=== PATIENT | female | born 1945 | race Caucasian/White ===

== ENCOUNTER → 2018-05-08 | Day surgery (SDC) | payer MEDICARE, OTHER ==
[~2018-05-08] MED LIST: Acetaminophen 325 MG Tab PO PRN; Apraclonidine 0.5% Ophth Soln 5 ML Bot EYELF ONE; Balanced Salt Solution Plus Ophth Irrig 500 ML Bottle IOCULAR ONE; Cataract Ophth Solution EYELF ONE; Chondroitin Sulfate/Hyaluronate Sodium Ophth Inj 0.75 ML Syringe EYELF ONE; Dexamethasone 4 MG/ML SDV IV ONE; Dexamethasone/Neomycin/Polymyxin B Ophth Oint 3.5 GM Tube EYELF ONE; Lidocaine 1% 30 ML SDV INJECT ONE; Midazolam 1 MG/ML 2 ML SDV IV ONE; Moxifloxacin 0.5% Ophth Soln 3 ML Bottle EYELF ONE; Ondansetron 4 MG/2 ML SDV IVPUSH PRN; Phenylephrine 10% Ophth Soln 5 ML Bot EYELF ONE; Phenylephrine 10% Ophth Soln 5 ML Bot EYELF PRN; Povidone-Iodine 5% Sterile Ophth Soln 30 ML Bottle EYELF ONE; Proparacaine 0.5% Ophth Soln 15 ML Bottle EYELF ONE; Sodium Chloride 0.9% 10 ML Syringe FLUSH PRN; Sodium Chloride 0.9% 10 ML Syringe IV ONE; Tetracaine HCl/PF 0.5% 4 ML Bottle EYELF ONE; Timolol Maleate 0.5% Ophth Soln 5 ML Bottle EYELF ONE; Vancomycin 500 MG SDV EYELF ONE
--- NOTE | 2018-05-08 08:54 | OR ---
DATE: 05/08/2018 PREOPERATIVE DIAGNOSIS: Visually significant mixed cataract, left eye. POSTOPERATIVE DIAGNOSIS: Visually significant mixed cataract, left eye. PROCEDURE: Extracapsular cataract extraction with intraocular lens implant, left eye. ANESTHESIA: Topical/local MAC. COMPLICATIONS: None. INDICATION: Ms. Trotter was seen in the clinic with complaints of blurred vision, difficulty reading, difficulty driving, and difficulty with glare. Examination revealed visually significant cataract. I explained options, I offered cataract surgery, and I explained risks. She is symptomatic and requested surgery to improve vision and function. She requested a monofocal implant. Slit-lamp examination reveals mixed cataract. She has been well informed regarding risks including the potential for infection, retinal detachment, and loss of vision amongst others. She voiced understanding and wished to proceed. OPERATIVE DESCRIPTION: After informed consent was obtained and the risks, benefits, and alternatives were explained, the patient was brought to the operative suite and topical anesthesia was administered. The patient was then prepped and draped in the sterile fashion, and attention was placed on the left eye. A sterile lid speculum was placed into the left eye to allow operative exposure. A full-thickness paracentesis was made in the temporal portion of the operative eye. Preservative-free lidocaine 0.1 mL was injected into the anterior chamber followed by viscoelastic. A full-thickness corneal incision was then made into the anterior chamber. A bent needle cystotome was used to create a small jatinder in the anterior capsule. The capsulorrhexis forceps was then used to create a 360-degree curvilinear capsulorrhexis. The nucleus was then removed using a phacoemulsification handpiece, and the remaining cortical material was then removed with irrigation and aspiration handpiece. Following removal of the cortical material, the capsular bag was then inspected and noted to be free of any holes or tears. Viscoelastic was then injected into the capsular bag, and the intraocular lens was inserted into the capsular bag. The viscoelastic material was then removed from both the anterior and posterior chambers and from behind the IOL. The lens and capsular bag were then reinspected. The IOL was well centered and the capsular bag intact. The wound and paracentesis sites were inspected and hydrated with balanced saline solution. Both were found to be self-sealing. The intraocular pressure was assessed digitally and found to be within normal range. A good red reflex was noted at the completion of the procedure. No complications occurred during the operation. At the completion of the procedure, Maxitrol, Voltaren, and Iopidine drops were placed into the operative eye. A sterile eye shield was placed over the operative eye, and the patient was transported to the postoperative recovery area having tolerated the procedure well. Postoperative instructions were given along with a postoperative appointment. The patient was advised to call with any questions or concerns. [facility] /[id number]
[2018-05-08 13:00] VITALS: BP 86/62
== END | disposition home or self-care (01) ==
LOC: DL.SDS 06:20
PROVIDERS: ATTEND Ophthalmology
DX: H25.812 Combined forms of age-related cataract, left eye (principal); I11.0 Hypertensive heart disease with heart failure; I50.9 Heart failure, unspecified; E66.9 Obesity, unspecified; Z68.33 Body mass index [BMI] 33.0-33.9, adult; I25.10 Atherosclerotic heart disease of native coronary artery without angina pectoris; E78.5 Hyperlipidemia, unspecified; Z79.82 Long term (current) use of aspirin; Z79.899 Other long term (current) drug therapy
CPT/HCPCS: 00142; 66984; A9270; C1780; J1100; J2250; J3370; J7050

== ENCOUNTER 2018-05-09 19:32 | Emergency (ER) | payer MEDICARE, OTHER ==
[2018-05-09 19:50] VITALS: BP 138/50
--- NOTE | 2018-05-09 21:27 | EDM.PDOC ---
ED HPI GENERAL MEDICAL PROBLEM - General Chief Complaint: Trauma Stated Complaint: TRIPPED AND FELL BUSTED CHEEK PRETTY GOOD Time Seen by Provider: 05/09/18 21:16 Source of Information: Reports: Patient History Limitations: Reports: No Limitations - History of Present Illness INITIAL COMMENTS - FREE TEXT/NARRATIVE: states was walking on side walk that has wooden boards and one of them has popped up and didn't see it and tripped over it and landed onto face. was dazzed but doesn't think was LOC, no vomiting no real nausea. c/o pain right cheek. neck feels ok. - Related Data Allergies Allergy/AdvReac Type Severity Reaction Status Date / Time No Known Allergies Allergy Verified 05/08/18 06:57 Home Meds: Home Meds Aspirin [Roberto Chewable] 81 mg PO DAILY 02/27/14 [History] Propafenone [Rythmol] 150 mg PO TID 02/27/14 [History] Cholecalciferol (Vitamin D3) [D3 Dots] 2,000 units PO DAILY 06/22/17 [History] Lutein/Minerals/Vit A,C & E [Ocuvite] 1 tab PO DAILY 06/22/17 [History] Simvastatin [Zocor] 40 mg PO BEDTIME 06/22/17 [History] Valsartan 320 mg PO DAILY 06/22/17 [History] hydroCHLOROthiazide [Hydrochlorothiazide] 12.5 mg PO DAILY 06/22/17 [History] [id number] [Cataract Opthalmic Solution] 1 drop EYELF QID 05/06/18 [History ] Past Medical History HEENT History: Reports: Cataract, Hard of Hearing, Impaired Vision, Other (See Below) Other HEENT History: WEARS CORRECTIVE LENS. HEARING AIDES BILAT EARS Cardiovascular History: Reports: Afib, Heart Murmur, Hypertension, Other (See Below) Other Cardiovascular History: HX OF [id number] SYNDROME. 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: Musculoskeletal History: Reports: None Neurological History: Reports: None Psychiatric History: Reports: None Endocrine/Metabolic History: Reports: None Hematologic History: Reports: None Immunologic History: Reports: None Oncologic (Cancer) History: Reports: None Dermatologic History: Reports: None - Infectious Disease History Other Infectious Disease History: 'I DON'T REALLY REMEMBER' - Past Surgical History Head Surgeries/Procedures: Reports: None HEENT Surgical History: Reports: None Cardiovascular Surgical History: Reports: Other (See Below) Other Cardiovascular Surgeries/Procedures: ABNORMAL NUCLEAR STRESS TEST. LEFT HEART CATH Respiratory Surgical History: Reports: None GI Surgical History: Reports: None Female Surgical History: Reports: Section Other Female Surgeries/Procedures: X4 Endocrine Surgical History: Reports: None Neurological Surgical History: Reports: None Musculoskeletal Surgical History: Reports: None Oncologic Surgical History: Reports: None Dermatological Surgical History: Reports: None Social & Family History - Caffeine Use Caffeine Use: Reports: None - Living Situation & Occupation Living situation: Reports: , with Family Occupation: Retired Review of Systems - Review of Systems Review Of Systems: ROS reveals no pertinent complaints other than HPI. ED EXAM, GENERAL - Physical Exam Exam: See Below Exam Limited By: No Limitations General Appearance: Alert, WD/WN, Mild Distress, Other (disomcfort) Eye Exam: Bilateral Eye: PERRL (pupils ess ER @ 4mm) Ears: Hearing Grossly Normal Throat/Mouth: Normal Voice, No Airway Compromise Head: Other (right cheek haematoma, no O/B) Neck: Non-Tender, Full Range of Motion Respiratory/Chest: No Respiratory Distress Cardiovascular: Regular Rate, Rhythm GI/Abdominal: Soft, Non-Tender Neurological: Alert, Oriented, Normal Cognition, Normal Gait, No Motor/Sensory Deficits Psychiatric: Flat Affect Skin Exam: Warm, Dry, Normal Color Lymphatic: No Adenopathy Course - Vital Signs Last Recorded V/S: Last Vital Signs Temp 36.7 C 05/09/18 19:50 Pulse 66 05/09/18 19:50 Resp 22 H 05/09/18 19:50 BP 138/50 L 05/09/18 19:50 Pulse Ox 96 05/09/18 19:50 - Re-Assessments/Exams Free Text/Narrative Re-Assessment/Exam: 05/09/18 21:21 results discussed with pt who has no c/o presently. Departure - Departure Time of Disposition: 21:40 Disposition: Home, Self-Care 01 Condition: Good Clinical Impression: Concussion Qualifiers: Encounter type: initial encounter Loss of consciousness presence/duration: without LOC Qualified Code(s): S06.0X0A - Concussion without loss of consciousness, initial encounter Contusion, cheek Qualifiers: Encounter type: initial encounter Qualified Code(s): S00.83XA - Contusion of other part of head, initial encounter - Discharge Information Instructions: Head Injury, Adult, [id number] Referrals: Mike Melton MD [Primary Care Provider] - Forms: ED Department Discharge Additional Instructions: 1) ice to cheek swelling intermittently 2) take tyelnol as needed for pain 3) return if there is any change or concern
== END 2018-05-09 21:40 | disposition home or self-care (01) ==
LOC: DL.ED 19:32
DX: S06.0X0A Concussion without loss of consciousness, initial encounter (principal); S00.83XA Contusion of other part of head, initial encounter; I10 Essential (primary) hypertension; I48.91 Unspecified atrial fibrillation; Z79.82 Long term (current) use of aspirin; Z79.899 Other long term (current) drug therapy; W18.40XA Slipping, tripping and stumbling without falling, unspecified, initial encounter
CPT/HCPCS: 70450; 70486; 72125; 99284

== ENCOUNTER 2018-06-12 06:43 | Day surgery (SDC) | payer MEDICARE, OTHER ==
[2018-06-12] MEDS ORDERED: Dexamethasone 4 MG/ML SDV IV ONE (06:44)
[2018-06-12] MEDS ORDERED: Midazolam 1 MG/ML 2 ML SDV IV ONE (06:44)
[2018-06-12] MEDS ORDERED: Sodium Chloride 0.9% 10 ML Syringe IV ONE (06:44)
[2018-06-12] MEDS ORDERED: Phenylephrine 10% Ophth Soln 5 ML Bot EYERT ONE (07:00)
[2018-06-12] MEDS ORDERED: Moxifloxacin 0.5% Ophth Soln 3 ML Bottle EYERT ONE (07:00)
[2018-06-12] MEDS ORDERED: Timolol Maleate 0.5% Ophth Soln 5 ML Bottle EYERT ONE (07:00)
[2018-06-12] MEDS ORDERED: Phenylephrine 10% Ophth Soln 5 ML Bot EYERT PRN (07:00)
[2018-06-12] MEDS ORDERED: Proparacaine 0.5% Ophth Soln 15 ML Bottle EYERT ONE (07:00)
[2018-06-12] MEDS ORDERED: Sodium Chloride 0.9% 10 ML Syringe FLUSH PRN (07:00)
[2018-06-12] MEDS ORDERED: Ondansetron 4 MG/2 ML SDV IVPUSH PRN (07:00)
[2018-06-12] MEDS ORDERED: Povidone-Iodine 5% Sterile Ophth Soln 30 ML Bottle EYERT ONE ×2 (07:00→08:09)
[2018-06-12] MEDS ORDERED: Cataract Ophth Solution EYERT ONE (07:00)
[2018-06-12] MEDS ORDERED: Acetaminophen 325 MG Tab PO PRN (07:00)
[2018-06-12] MEDS ORDERED: Tetracaine HCl/PF 0.5% 4 ML Bottle EYERT ONE (08:09)
[2018-06-12] MEDS ORDERED: Lidocaine 1% 30 ML SDV INJECT ONE (08:18)
[2018-06-12] MEDS ORDERED: Balanced Salt Solution Plus Ophth Irrig 500 ML Bottle IOCULAR ONE (08:19)
[2018-06-12] MEDS ORDERED: Chondroitin Sulfate/Hyaluronate Sodium Ophth Inj 0.75 ML Syringe EYERT ONE (08:19)
[2018-06-12] MEDS ORDERED: Vancomycin 500 MG SDV EYERT ONE (08:20)
[2018-06-12] MEDS ORDERED: Apraclonidine 0.5% Ophth Soln 5 ML Bot EYERT ONE (08:29)
[2018-06-12] MEDS ORDERED: Diclofenac Sodium 0.1% Ophth Soln 5 ML Bottle EYERT ONE (08:30)
[2018-06-12] MEDS ORDERED: Dexamethasone/Neomycin/Polymyxin B Ophth Oint 3.5 GM Tube EYERT ONE (08:31)
--- NOTE | 2018-06-12 08:52 | OR ---
DATE: PREOPERATIVE DIAGNOSIS: Visually significant mixed cataract, right eye. POSTOPERATIVE DIAGNOSIS: Visually significant mixed cataract, right eye. PROCEDURE: Extracapsular cataract extraction with intraocular lens implant, right eye. ANESTHESIA: Topical/local MAC. COMPLICATIONS: None. INDICATION: The patient was seen in the clinic. She has complained of a slow progressive decrease in vision. The clinical examination revealed visually significant cataract. I explained options, I offered cataract surgery, and I explained risks. She is symptomatic and requested surgery to reduce symptoms and improve function. She voiced an understanding with respect to risks including the potential for visual loss. We discussed implant options, and she requested a monofocal implant. OPERATIVE DESCRIPTION: After informed consent was obtained and the risks, benefits, and alternatives were explained, the patient was brought to the operative suite and topical anesthesia was administered. The patient was then prepped and draped in the sterile fashion, and attention was placed on the right eye. A sterile lid speculum was placed into the right eye to allow operative exposure. A full-thickness paracentesis was made in the temporal portion of the operative eye. Preservative-free lidocaine 0.1 mL was injected into the anterior chamber followed by viscoelastic. A full-thickness corneal incision was then made into the anterior chamber. A bent needle cystotome was used to create a small jatinder in the anterior capsule. The capsulorrhexis forceps was then used to create a 360-degree curvilinear capsulorrhexis. The nucleus was then removed using a phacoemulsification handpiece, and the remaining cortical material was then removed with irrigation and aspiration handpiece. Following removal of the cortical material, the capsular bag was then inspected and noted to be free of any holes or tears. Viscoelastic was then injected into the capsular bag, and the intraocular lens was inserted into the capsular bag. The viscoelastic material was then removed from both the anterior and posterior chambers and from behind the IOL. The lens and capsular bag were then reinspected. The IOL was well centered and the capsular bag intact. The wound and paracentesis sites were inspected and hydrated with balanced saline solution. Both were found to be self-sealing. The intraocular pressure was assessed digitally and found to be within normal range. A good red reflex was noted at the completion of the procedure. No complications occurred during the operation. At the completion of the procedure, Maxitrol, Voltaren, and Iopidine drops were placed into the operative eye. A sterile eye shield was placed over the operative eye, and the patient was transported to the postoperative recovery area having tolerated the procedure well. Postoperative instructions were given along with a postoperative appointment. The patient was advised to call with any questions or concerns. [facility] /[id number]
[2018-06-12 10:22] VITALS: BP 109/43
== END 2018-06-12 09:45 | disposition home or self-care (01) ==
LOC: DL.SDS 06:43 → EEVIPCON 06:43 → DL.SDS 09:45
PROVIDERS: ATTEND Ophthalmology
DX: H25.811 Combined forms of age-related cataract, right eye (principal); I10 Essential (primary) hypertension; E78.5 Hyperlipidemia, unspecified; I48.91 Unspecified atrial fibrillation; I45.6 Pre-excitation syndrome; Z79.899 Other long term (current) drug therapy
CPT/HCPCS: 66984; A9270; C1780; J1100; J2250; J3370; J7050

== ENCOUNTER 2019-04-21 23:04 | Emergency (ER) | payer MEDICARE, OTHER ==
[2019-04-21 23:40] VITALS: BP 158/77
--- NOTE | 2019-04-21 23:59 | EDM.PDOC ---
ED HPI GENERAL MEDICAL PROBLEM - General Chief Complaint: Cardiovascular Problem Stated Complaint: NOT FEELING WELL Time Seen by Provider: 04/21/19 23:48 Source of Information: Reports: Patient History Limitations: Reports: No Limitations - History of Present Illness INITIAL COMMENTS - FREE TEXT/NARRATIVE: This 73 yo female patient reports to the ED due to not feeling well. The patient reports she has been feeling intermittent heart palpitations since about 1800 this evening. The patient reports she had an Echo this week and is scheduled for a follow-up on Sunday. The patient reports most of her symptoms resolved prior to her arrival in the ED. Onset: Today Onset Date: 04/21/19 Onset Time: 18:00 Duration: Resolved Prior to Arrival Location: Reports: Chest, Generalized Quality: Reports: Other Severity: Moderate Improves with: Reports: None Worsens with: Reports: None Context: Reports: Other Associated Symptoms: Reports: Other - Related Data Allergies Allergy/AdvReac Type Severity Reaction Status Date / Time No Known Allergies Allergy Verified 04/21/19 23:40 Home Meds: Home Meds Aspirin [Roberto Chewable] 81 mg PO DAILY 02/27/14 [History] Propafenone [Rythmol] 150 mg PO TID 02/27/14 [History] Lutein/Minerals/Vit A,C & E [Ocuvite] 1 tab PO DAILY 06/22/17 [History] Simvastatin [Zocor] 40 mg PO BEDTIME 06/22/17 [History] hydroCHLOROthiazide [Hydrochlorothiazide] 12.5 mg PO DAILY 06/22/17 [History] Irbesartan 300 mg PO DAILY 03/24/19 [History] Past Medical History HEENT History: Reports: Cataract, Hard of Hearing, Impaired Vision, Other (See Below) Other HEENT History: WEARS CORRECTIVE LENS. HEARING AIDES BILAT EARS Cardiovascular History: Reports: Afib, Heart Murmur, Hypertension, Other (See Below) Other Cardiovascular History: HX OF [id number] SYNDROME. 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: Musculoskeletal History: Reports: None Neurological History: Reports: None Psychiatric History: Reports: None Endocrine/Metabolic History: Reports: None Hematologic History: Reports: None Immunologic History: Reports: None Oncologic (Cancer) History: Reports: None Dermatologic History: Reports: None - Infectious Disease History Other Infectious Disease History: 'I DON'T REALLY REMEMBER' - Past Surgical History Head Surgeries/Procedures: Reports: None HEENT Surgical History: Reports: None, Cataract Surgery Cardiovascular Surgical History: Reports: Other (See Below) Other Cardiovascular Surgeries/Procedures: ABNORMAL NUCLEAR STRESS TEST. LEFT HEART CATH Respiratory Surgical History: Reports: None GI Surgical History: Reports: None Female Surgical History: Reports: Section Other Female Surgeries/Procedures: X4 Endocrine Surgical History: Reports: None Neurological Surgical History: Reports: None Musculoskeletal Surgical History: Reports: None Oncologic Surgical History: Reports: None Dermatological Surgical History: Reports: None Social & Family History - Family History Family Medical History: Noncontributory - Tobacco Use Smoking Status *Q: Never Smoker Second Hand Smoke Exposure: No - Caffeine Use Caffeine Use: Reports: Coffee Caffeine Use Comment: 2 CUPS DAIILY - Recreational Drug Use Recreational Drug Use: No - Living Situation & Occupation Living situation: Reports: , with Family Occupation: Retired ED ROS GENERAL - Review of Systems Review Of Systems: ROS reveals no pertinent complaints other than HPI. ED EXAM, GENERAL - Physical Exam Exam: See Below Exam Limited By: No Limitations General Appearance: Alert, WD/WN, Mild Distress, Obese Eye Exam: Bilateral Eye: EOMI, Normal Inspection, PERRL Ears: Normal External Exam, Normal Canal, Hearing Grossly Normal, Normal TMs Nose: Normal Inspection, Normal Mucosa, No Blood Throat/Mouth: Normal Inspection, Normal Lips, Normal Teeth, Normal Gums, Normal Oropharynx, Normal Voice, No Airway Compromise Head: Atraumatic, Normocephalic Neck: Normal Inspection, Supple, Non-Tender, Full Range of Motion Respiratory/Chest: No Respiratory Distress, Lungs Clear, Normal Breath Sounds, No Accessory Muscle Use, Chest Non-Tender Cardiovascular: Normal Peripheral Pulses, Regular Rate, Rhythm, No Edema, No Gallop, No JVD, No Rub, Systolic Murmur GI/Abdominal: Normal Bowel Sounds, Soft, Non-Tender, No Organomegaly, No Distention, No Abnormal Bruit, No Mass, Other (obese) (Female) Exam: Deferred Rectal (Female) Exam: Deferred Back Exam: Normal Inspection, Full Range of Motion, NT Extremities: Normal Inspection, Normal Range of Motion, Non-Tender, Normal Capillary Refill, No Pedal Edema Neurological: Alert, Oriented, CN II-XII Intact, Normal Cognition, Normal Gait, Normal Reflexes, No Motor/Sensory Deficits Psychiatric: Normal Affect, Normal Mood Skin Exam: Warm, Dry, Intact, Normal Color, No Rash Lymphatic: No Adenopathy Course - Vital Signs Last Recorded V/S: Last Vital Signs Temp 36.7 C 04/21/19 23:36 Pulse 62 04/21/19 23:36 Resp 19 04/21/19 23:36 BP 158/77 H 04/21/19 23:36 Pulse Ox 98 04/21/19 23:36 - Orders/Labs/Meds Orders: Active Orders 24 hr Category Date Time Status EKG Documentation Completion [RC] URGENT Care 04/21/19 23:39 Ordered Labs: Laboratory Tests 04/21/19 04/21/19 Range/Units 23:45 23:48 WBC 7.4 (5.0-10.0) 10^3/uL RBC 4.17 L (4.2-5.4) 10^6/uL Hgb 13.2 (12.0-16.0) g/dL Hct 39.1 (37.0-47.0) % MCV 93.8 (80-100) fL MCH 31.7 (27.0-34.0) pg MCHC 33.8 (33.0-35.0) g/dL Plt Count 214 (150-450) 10^3/uL Neut % (Auto) 43.1 (42.2-75.2) % Lymph % (Auto) 40.2 (20.5-50.1) % Logan % (Auto) 12.0 H (2-8) % Eos % (Auto) 3.9 H (1.0-3.0) % Baso % (Auto) 0.8 (0.0-1.0) % Sodium 138 (135-145) mmol/L Potassium 3.4 L (3.6-5.0) mmol/L Chloride 108 (101-111) mmol/L Carbon Dioxide 23.0 (21.0-31.0) mmol/L Anion Gap 10.4 BUN 15 (7-18) mg/dL Creatinine 0.7 (0.6-1.3) mg/dL Est Cr Clr Drug Dosing 59.96 mL/min Estimated GFR (MDRD) > 60 BUN/Creatinine Ratio 21.42 Glucose 98 (74-105) mg/dL Calcium 8.4 (8.4-10.2) mg/dl Total Bilirubin 0.7 (0.2-1.0) mg/dL AST 18 (10-42) IU/L ALT 17 (10-60) IU/L Alkaline Phosphatase 68 (42-121) IU/L Troponin I 0.07 H* (0.00-0.02) ng/ml Total Protein 6.0 L (6.7-8.2) g/dl Albumin 3.4 (3.2-5.5) g/dl Globulin 2.6 Albumin/Globulin Ratio 1.31 Departure - Departure Time of Disposition: 01:08 Disposition: DC/Tfer to Acute Hospital 02 Reason for Transfer *Q: Other Condition: Fair Clinical Impression: Elevated troponin I level Forms: Interfacility Transfer EMTALA Care Plan Goals: Discussed the history, examination, lab, x-ray and EKG results with Dr. Diaz (Hospitalist with [facility] in [place]). Dr. Diaz accepted the patient for continued evaluation and further management as an inpatient at [facility]. The patient will be transported by [facility]. - My Orders Last 24 Hours: My Active Orders 04/21/19 23:39 EKG Documentation Completion [RC] URGENT - Assessment/Plan Last 24 Hours: My Active Orders 04/21/19 23:39 EKG Documentation Completion [RC] URGENT
[2019-04-22 00:12] LABS: ANION GAP 10.4; CHLORIDE,CL 108 mmol/L (101-111); SODIUM,NA 138 mmol/L (135-145)
== END 2019-04-22 01:34 ==
LOC: DL.ED 23:04
DX: R79.89 Other specified abnormal findings of blood chemistry (principal); I48.91 Unspecified atrial fibrillation; Z79.82 Long term (current) use of aspirin; Z79.899 Other long term (current) drug therapy
CPT/HCPCS: 36415; 71045; 80053; 84484; 85025; 93005; 99285-25

== ENCOUNTER 2019-08-17 12:41 | Emergency (ER) | payer MEDICARE, OTHER ==
[2019-08-17 12:55] VITALS: BP 106/80; PULSE 150
[2019-08-17] MEDS ORDERED: Sodium Chloride 0.9% 10 ML Syringe FLUSH PRN (13:10)
[2019-08-17] MEDS ORDERED: Diltiazem 25 MG/5 ML SDV IVPUSH ONE (13:22)
[2019-08-17 13:32] LABS: ANION GAP 10.8; CHLORIDE,CL 102 mmol/L (101-111); SODIUM,NA 139 mmol/L (135-145)
[2019-08-17] MEDS ORDERED: NS + KCl 20mEq/L 1,000 ML IV SCH (13:45)
[2019-08-17] MEDS ORDERED: Diltiazem 125 MG in Sodium Chloride 0.9% 125 ML IV SCH (13:45)
--- NOTE | 2019-08-17 13:57 | EDM.PDOC ---
ED HPI GENERAL MEDICAL PROBLEM - General Chief Complaint: Cardiovascular Problem Stated Complaint: HEART RACING AFTER VALVE PUT IN Time Seen by Provider: 08/17/19 12:55 Source of Information: Reports: Patient, RN, RN Notes Reviewed History Limitations: Reports: No Limitations - History of Present Illness INITIAL COMMENTS - FREE TEXT/NARRATIVE: patient presents to ER with complaint of shortness of breath, heart racing. States she had a recent procedure done on July 31, [address] Feng in [place], a left atrial appendage ligation. Patient presents to the ER currently wearing an external defibrillator vest. Denies chest pain, fever, chills, N/V/D. Upon arrival to the ER heart rate is 120s to 130s, atrial fib with RVR. Onset: Today, Sudden - Related Data Allergies Allergy/AdvReac Type Severity Reaction Status Date / Time No Known Allergies Allergy Verified 08/17/19 13:01 Home Meds: Home Meds Aspirin [Roberto Chewable] 81 mg PO DAILY 02/27/14 [History] Lutein/Minerals/Vit A,C & E [Ocuvite] 1 tab PO DAILY 06/22/17 [History] Simvastatin [Zocor] 40 mg PO BEDTIME 06/22/17 [History] hydroCHLOROthiazide [Hydrochlorothiazide] 12.5 mg PO DAILY 06/22/17 [History] Amiodarone [Cordarone] 200 mg PO DAILY 08/17/19 [History] Ferrous Sulfate 325 mg PO TID 08/17/19 [History] Metoprolol Succinate [Toprol XL] 25 mg PO DAILY 08/17/19 [History] Pravastatin Sodium [Pravastatin (Pravachol)] 40 mg PO DAILY 08/17/19 [History] Warfarin Sodium 2 mg PO DAILY 08/17/19 [History] Past Medical History HEENT History: Reports: Cataract, Hard of Hearing, Impaired Vision, Other (See Below) Other HEENT History: WEARS CORRECTIVE LENS. 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 Respiratory History: Reports: None Gastrointestinal History: Reports: None Genitourinary History: Reports: None EXHIBIT CARPENTER History: Reports: Musculoskeletal History: Reports: None Neurological History: Reports: None Psychiatric History: Reports: None Endocrine/Metabolic History: Reports: None Hematologic History: Reports: None Immunologic History: Reports: None Oncologic (Cancer) History: Reports: None Dermatologic History: Reports: None - Infectious Disease History Other Infectious Disease History: 'I DON'T REALLY REMEMBER' - Past Surgical History Head Surgeries/Procedures: Reports: None HEENT Surgical History: Reports: None, Cataract Surgery Cardiovascular Surgical History: Reports: Other (See Below) Other Cardiovascular Surgeries/Procedures: ABNORMAL NUCLEAR STRESS TEST. LEFT HEART CATH Respiratory Surgical History: Reports: None GI Surgical History: Reports: None Female Surgical History: Reports: Section Other Female Surgeries/Procedures: X4 Endocrine Surgical History: Reports: None Neurological Surgical History: Reports: None Musculoskeletal Surgical History: Reports: None Oncologic Surgical History: Reports: None Dermatological Surgical History: Reports: None Social & Family History - Family History Family Medical History: Noncontributory - Tobacco Use Smoking Status *Q: Never Smoker Second Hand Smoke Exposure: No - Caffeine Use Caffeine Use: Reports: None Caffeine Use Comment: 2 CUPS DAIILY - Recreational Drug Use Recreational Drug Use: No - Living Situation & Occupation Living situation: Reports: , with Family Occupation: Retired ED ROS GENERAL - Review of Systems Review Of Systems: ROS reveals no pertinent complaints other than HPI. ED EXAM, GENERAL - Physical Exam Exam: See Below Exam Limited By: No Limitations General Appearance: Alert, WD/WN, Moderate Distress Eye Exam: Bilateral Eye: EOMI, Normal Inspection Ears: Normal External Exam, Hearing Grossly Normal Nose: Normal Inspection Throat/Mouth: Normal Inspection, Normal Voice, No Airway Compromise Head: Atraumatic, Normocephalic Neck: Normal Inspection, Supple, Non-Tender, Full Range of Motion Respiratory/Chest: No Respiratory Distress, No Accessory Muscle Use, Chest Non- Tender, Crackles (bases bilaterally) Cardiovascular: Normal Peripheral Pulses, Tachycardia, Irregularly Irregular Peripheral Pulses: 1+: Radial (L), Radial (R) GI/Abdominal: Normal Bowel Sounds, Soft, Non-Tender (Female) Exam: Deferred Rectal (Female) Exam: Deferred Back Exam: Normal Inspection, Full Range of Motion, NT Extremities: Normal Inspection, Normal Range of Motion, Non-Tender, Normal Capillary Refill, No Pedal Edema Neurological: Alert, Oriented, CN II-XII Intact, Normal Cognition, Normal Gait, Normal Reflexes, No Motor/Sensory Deficits Psychiatric: Normal Affect, Normal Mood, Anxious Skin Exam: Warm, Dry, Intact, Normal Color, No Rash Lymphatic: No Adenopathy Course - Vital Signs Last Recorded V/S: Last Vital Signs Temp 97.8 F 08/17/19 12:51 Pulse 150 H 08/17/19 12:51 Resp 22 H 08/17/19 12:51 BP 106/80 08/17/19 12:51 Pulse Ox 98 08/17/19 12:51 - Orders/Labs/Meds Orders: Active Orders 24 hr Category Date Time Status EKG Documentation Completion [RC] STAT Care 08/17/19 13:10 Active Peripheral IV Care [RC] . DIRECTED Care 08/17/19 13:10 Active Diltiazem 125 mg Med 08/17/19 13:45 Active Sodium Chloride 0.9% [Normal Saline] 125 ml IV ASDIRECTED NS + KCl 20mEq/L [Normal Saline with 20 mEq KCl] 1,000 Med 08/17/19 13:45 Active ml IV ASDIRECTED Sodium Chloride 0.9% [Normal Saline] 1,000 ml Med 08/17/19 14:15 Active IV ASDIRECTED Sodium Chloride 0.9% [Saline Flush] Med 08/17/19 13:10 Active 10 ml FLUSH ASDIRECTED PRN Peripheral IV Insertion Adult [OM.PC] Stat Oth 08/17/19 13:10 Ordered Medication Orders Diltiazem HCl 125 mg/ Sodium (Chloride) 150 mls @ 5 mls/hr IV ASDIRECTED BG Potassium Chloride/Sodium Chloride (Normal Saline With 20 Meq Kcl) 1,000 mls @ 150 mls/hr IV ASDIRECTED BG Last Admin: 08/17/19 14:11 Dose: 150 mls/hr Sodium Chloride (Normal Saline) 1,000 mls @ 50 mls/hr IV ASDIRECTED BG Last Admin: 08/17/19 14:13 Dose: 50 mls/hr Sodium Chloride (Saline Flush) 10 ml FLUSH ASDIRECTED PRN PRN Reason: Keep Vein Open Last Admin: 08/17/19 13:29 Dose: 10 ml Labs: Laboratory Tests 08/17/19 08/17/19 08/17/19 Range/Units 12:59 12:59 12:59 WBC 9.7 (5.0-10.0) 10^3/uL RBC 4.10 L (4.2-5.4) 10^6/uL Hgb 13.2 (12.0-16.0) g/dL Hct 39.9 (37.0-47.0) % MCV 97.3 D (80-100) fL MCH 32.2 (27.0-34.0) pg MCHC 33.1 (33.0-35.0) g/dL Plt Count 381 D (150-450) 10^3/uL Neut % (Auto) 57.9 (42.2-75.2) % Lymph % (Auto) 28.9 (20.5-50.1) % [place] % (Auto) 11.3 H (2-8) % Eos % (Auto) 1.4 (1.0-3.0) % Baso % (Auto) 0.5 (0.0-1.0) % PT 18.8 H (9.0-12.0) SEC INR 1.9 H (0.9-1.2) Sodium 139 (135-145) mmol/L Potassium 2.8 L (3.6-5.0) mmol/L Chloride 102 (101-111) mmol/L Carbon Dioxide 29.0 (21.0-31.0) mmol/L Anion Gap 10.8 BUN 9 (7-18) mg/dL Creatinine 0.8 (0.6-1.3) mg/dL Est Cr Clr Drug Dosing 47.32 mL/min Estimated GFR (MDRD) > 60 BUN/Creatinine Ratio 11.25 Glucose 104 (74-105) mg/dL Calcium 8.8 (8.4-10.2) mg/dl Total Bilirubin 1.0 (0.2-1.0) mg/dL AST 31 (10-42) IU/L ALT 23 (10-60) IU/L Alkaline Phosphatase 116 (42-121) IU/L Troponin I 0.06 H* (0.00-0.02) ng/ml B-Natriuretic Peptide 211 H (0-100) pg/ml Total Protein 6.4 L (6.7-8.2) g/dl Albumin 3.3 (3.2-5.5) g/dl Globulin 3.1 Albumin/Globulin Ratio 1.06 Meds: Medications Generic Name Dose Route Start Last Admin Trade Name Freq PRN Reason Stop Dose Admin Diltiazem HCl 125 mg/ Sodium 150 mls @ 5 mls/hr 08/17/19 13:45 Chloride IV ASDIRECTED BG Potassium Chloride/Sodium Chloride 1,000 mls @ 150 mls/hr 08/17/19 13:45 14:11 Normal Saline With 20 Meq Kcl IV 150 mls/hr ASDIRECTED BG Administration Sodium Chloride 1,000 mls @ 50 mls/hr 08/17/19 14:15 08/17/19 14:13 Normal Saline IV 50 mls/hr ASDIRECTED BG Administration Sodium Chloride 10 ml 08/17/19 13:10 08/17/19 13:29 Saline Flush FLUSH 10 ml ASDIRECTED PRN Administration Keep Vein Open Discontinued Medications Generic Name Dose Route Start Last Admin Trade Name Freq PRN Reason Stop Dose Admin Diltiazem HCl 20 mg 08/17/19 13:22 08/17/19 13:29 Diltiazem IVPUSH 08/17/19 13:23 20 mg ONETIME ONE Administration - Radiology Interpretation Free Text/Narrative:: Chest xray: FINDINGS: Lungs: Unremarkable. No consolidation. Pleural space: Unremarkable. No pleural effusion. No pneumothorax. Heart/Mediastinum: Atrial appendage occlusion device is appreciated in place. Normal heart size Diaphragm: There is an elevated right hemidiaphragm present on the current examination. Bones/joints: There are sternal wires consistent with previous sternotomy incision. IMPRESSION: No acute findings. Thank you for allowing us to participate in the care of your patient. Dictated and Authenticated by: Wiley Hawthorne MD 08/17/2019 1:42 PM Central Time ([place] & [place]) See rad report Departure - Departure Time of Disposition: 14:32 Disposition: DC/Tfer to Acute Hospital 02 Reason for Transfer *Q: Other Condition: Fair, Serious Clinical Impression: Atrial fibrillation with RVR, Hypokalemia, S/P left atrial appendage ligation Forms: ED Department Discharge, Interfacility Transfer EMTALA - My Orders Last 24 Hours: My Active Orders 08/17/19 13:10 EKG Documentation Completion [RC] STAT Peripheral IV Care [RC] . DIRECTED Sodium Chloride 0.9% [Saline Flush] 10 ml FLUSH ASDIRECTED PRN Peripheral IV Insertion Adult [OM.PC] Stat 08/17/19 13:45 Diltiazem 125 mg Sodium Chloride 0.9% [Normal Saline] 125 ml IV ASDIRECTED NS + KCl 20mEq/L [Normal Saline with 20 mEq KCl] 1,000 ml IV ASDIRECTED 08/17/19 14:15 Sodium Chloride 0.9% [Normal Saline] 1,000 ml IV ASDIRECTED - Assessment/Plan Last 24 Hours: My Active Orders 08/17/19 13:10 EKG Documentation Completion [RC] STAT Peripheral IV Care [RC] . DIRECTED Sodium Chloride 0.9% [Saline Flush] 10 ml FLUSH ASDIRECTED PRN Peripheral IV Insertion Adult [OM.PC] Stat 08/17/19 13:45 Diltiazem 125 mg Sodium Chloride 0.9% [Normal Saline] 125 ml IV ASDIRECTED NS + KCl 20mEq/L [Normal Saline with 20 mEq KCl] 1,000 ml IV ASDIRECTED 08/17/19 14:15 Sodium Chloride 0.9% [Normal Saline] 1,000 ml IV ASDIRECTED
[2019-08-17] MEDS ORDERED: Sodium Chloride 0.9% 1,000 ML IV SCH (14:15)
== END 2019-08-17 15:16 ==
LOC: DL.ED 12:41
DX: I48.91 Unspecified atrial fibrillation (principal); E87.6 Hypokalemia; I10 Essential (primary) hypertension; Z79.82 Long term (current) use of aspirin; Z79.899 Other long term (current) drug therapy; Z95.818 Presence of other cardiac implants and grafts
CPT/HCPCS: 36415; 71045; 80053; 83880; 84484; 85025; 85610; 93005; 96365; 96375; 99284; 99285-25; J3480; J3490; J7030

== ENCOUNTER 2021-05-08 07:21 | Emergency (ER) | payer MEDICARE, OTHER ==
[2021-05-08] MEDS ORDERED: Metoprolol Succinate 50 MG Tab.ER PO ONE (07:57)
[2021-05-08 08:03] VITALS: BP 101/72; PULSE 118
--- NOTE | 2021-05-08 08:04 | EDM.PDOC ---
ED HPI GENERAL MEDICAL PROBLEM - General Stated Complaint: HEARTBEAT IRREGULAR 130 Time Seen by Provider: 05/08/21 07:42 Source of Information: Reports: Patient History Limitations: Reports: No Limitations - History of Present Illness INITIAL COMMENTS - FREE TEXT/NARRATIVE: Pt is here for a fast heart rate. It started last night while getting ready for bed. She felt her heart racing and noted her pulse was 110. She was able to fall asleep. This morning, she noted her heart rate was 130. She reports that she has been having this off and on in the morning, but it never lasts more than an hour before going away on its own. Today it is not going away so she decided to come in. She had an aortic valve replaced about 2 years ago and had an ablation for WPW about 1 year ago. She was recently started on coumadin for a fib in the clinic on 04/27/21 which was found when she went in for increased swelling in her legs. She denies any chest pain, jaw or arm pain. No nausea or vomiting. She denies any exposure to COVID and has had her COVID vaccines. She has not taken her medications today. - Related Data Allergies Allergy/AdvReac Type Severity Reaction Status Date / Time No Known Allergies Allergy Verified 08/17/19 13:01 Home Meds: Home Meds Aspirin [Roberto Chewable] 81 mg PO DAILY 02/27/14 [History] Lutein/Minerals/Vit A,C & E [Ocuvite] 1 tab PO DAILY 06/22/17 [History] Metoprolol Succinate [Toprol XL] 25 mg PO DAILY 08/17/19 [History] Warfarin Sodium 2 mg PO ASDIRECTED 08/17/19 [History] Furosemide 20 mg PO DAILY 09/05/19 [History] Potassium Chloride 20 meq PO BID 09/05/19 [History] Sennosides/Docusate Sodium [Senna-Docusate Sodium Tablet] 1 tab PO BID PRN 09/05/19 [History] Psyllium [Metamucil] 1 gm PO DAILY 05/08/21 [History] atorvaSTATin [Lipitor] 20 mg PO BEDTIME 05/08/21 [History] Past Medical History HEENT History: Reports: Cataract, Hard of Hearing, Impaired Vision, Other (See Below) Other HEENT History: WEARS CORRECTIVE LENS. HEARING AIDES BILAT EARS Cardiovascular History: Reports: Afib, Heart Murmur, Hypertension, Other (See Below) Other Cardiovascular History: HX OF [id number] SYNDROME. BRUIT OF LEFT CAROTID ARTERY Respiratory History: Reports: None Gastrointestinal History: Reports: None Genitourinary History: Reports: None OPERATIONS SPECIALIST History: Reports: Musculoskeletal History: Reports: None Neurological History: Reports: None Psychiatric History: Reports: None Endocrine/Metabolic History: Reports: None Hematologic History: Reports: None Immunologic History: Reports: None Oncologic (Cancer) History: Reports: None Dermatologic History: Reports: None - Infectious Disease History Other Infectious Disease History: 'I DON'T REALLY REMEMBER' - Past Surgical History Head Surgeries/Procedures: Reports: None HEENT Surgical History: Reports: None, Cataract Surgery Cardiovascular Surgical History: Reports: Other (See Below) Other Cardiovascular Surgeries/Procedures: ABNORMAL NUCLEAR STRESS TEST. LEFT HEART CATH Respiratory Surgical History: Reports: None GI Surgical History: Reports: None Female Surgical History: Reports: Section Other Female Surgeries/Procedures: X4 Endocrine Surgical History: Reports: None Neurological Surgical History: Reports: None Musculoskeletal Surgical History: Reports: None Oncologic Surgical History: Reports: None Dermatological Surgical History: Reports: None Social & Family History - Family History Family Medical History: No Pertinent Family History - Caffeine Use Caffeine Use: Reports: None Caffeine Use Comment: 2 CUPS DAIILY - Living Situation & Occupation Living situation: Reports: , with Family Occupation: Retired ED ROS GENERAL - Review of Systems Review Of Systems: Comprehensive ROS is negative, except as noted in HPI. ED EXAM, GENERAL - Physical Exam Exam: See Below Exam Limited By: No Limitations General Appearance: Alert, WD/WN, No Apparent Distress Eye Exam: Bilateral Eye: Normal Inspection Ears: Normal External Exam Throat/Mouth: Normal Voice, No Airway Compromise Head: Atraumatic, Normocephalic Neck: Normal Inspection, Supple, Non-Tender Respiratory/Chest: No Respiratory Distress, Lungs Clear, Normal Breath Sounds, No Accessory Muscle Use Cardiovascular: Normal Peripheral Pulses, No Murmur, Tachycardia (120), Other (regular rhythm) GI/Abdominal: Soft, Non-Tender, No Distention. No: Guarding, Rebound (Female) Exam: Deferred Rectal (Female) Exam: Deferred Back Exam: Normal Inspection, Full Range of Motion, NT Extremities: Normal Inspection, Normal Capillary Refill, Pedal Edema Neurological: Alert, Oriented, Normal Cognition, Normal Gait, No Motor/Sensory Deficits Psychiatric: Normal Affect, Normal Mood Skin Exam: Warm, Dry, Intact, Normal Color, No Rash Lymphatic: No Adenopathy Course - Vital Signs Last Recorded V/S: Last Vital Signs Temp 96.1 F L 05/08/21 07:52 Pulse 118 H 05/08/21 08:02 Resp 16 05/08/21 07:52 BP 101/72 05/08/21 08:02 Pulse Ox 98 05/08/21 07:52 - Orders/Labs/Meds Orders: Active Orders 24 hr Category Date Time Status EKG Documentation Completion [RC] STAT Care 05/08/21 07:35 Ordered Labs: Laboratory Tests 05/08/21 05/08/21 05/08/21 Range/Units 07:40 07:40 07:40 WBC 8.5 (5.0-10.0) 10^3/uL RBC 4.96 (4.2-5.4) 10^6/uL Hgb 15.3 D (12.0-16.0) g/dL Hct 46.8 (37.0-47.0) % MCV 94.4 (80-100) fL MCH 30.8 (27.0-34.0) pg MCHC 32.7 L (33.0-35.0) g/dL Plt Count 248 D (150-450) 10^3/uL Neut % (Auto) 51.5 (42.2-75.2) % Lymph % (Auto) 34.2 (20.5-50.1) % [place] % (Auto) 10.0 H (2-8) % Eos % (Auto) 3.5 H (1.0-3.0) % Baso % (Auto) 0.8 (0.0-1.0) % PT 28.6 H D (9.0-12.0) SEC INR 2.9 H (0.9-1.2) APTT 39.2 H (22.0-34.0) SEC Sodium 146 H (136-145) mmol/L Potassium 4.0 (3.5-5.1) mmol/L Chloride 111 H (98-107) mmol/L Carbon Dioxide 26 (21-32) mmol/L Anion Gap 13.0 (7-13) mEq/L BUN 14 (7-18) mg/dL Creatinine 0.91 (0.55-1.02) mg/dL Est Cr Clr Drug Dosing 48.47 mL/min Estimated GFR (MDRD) 60 BUN/Creatinine Ratio 15.4 (No establ ref range) Glucose 96 (70-99) mg/dL Calcium 8.5 (8.5-10.1) mg/dL Total Bilirubin 0.5 (0.2-1.0) mg/dL AST 21 (15-37) U/L ALT 33 (14-59) U/L Alkaline Phosphatase 114 (46-116) U/L Troponin I High Sens 11 (<=51) pg/mL Total Protein 6.4 (6.4-8.2) g/dL Albumin 3.2 L (3.4-5.0) g/dL Globulin 3.2 Albumin/Globulin Ratio 1.00 Meds: Medications Discontinued Medications Generic Name Dose Route Start Last Admin Trade Name Freq PRN Reason Stop Dose Admin Metoprolol Succinate 50 mg 05/08/21 07:57 05/08/21 08:02 Metoprolol Succinate 50 Mg Tab.Er PO 05/08/21 07:58 50 mg ONETIME ONE Administration - Re-Assessments/Exams Free Text/Narrative Re-Assessment/Exam: Pt is resting comfortably. Discussed lab results. Encouraged pt to stay hydrated in this heat. She is wanting to go home to rest. Reviewed reasons to call/return to the ER. Pt verbalized understanding. 05/08/21 08:38 Departure - Departure Time of Disposition: 08:37 Disposition: Home, Self-Care 01 Condition: Good Clinical Impression: Tachycardia Instructions: Sinus Tachycardia Additional Instructions: Call your client application support engineer tomorrow to give them an update If you develop chest pain, jaw/arm pain, shortness of breath, or increased heart rate/palpitations, return to the ER Follow up with your PCP in 3-5 days, or sooner if needed Sepsis Event Note (ED) - Focused Exam Vital Signs: Vital Signs Temp Pulse Pulse Resp BP BP Pulse Ox 05/08/21 08:02 118 H 101/72 05/08/21 07:52 96.1 F L 125 H 16 144/85 H 98 - My Orders Last 24 Hours: My Active Orders 05/08/21 07:35 EKG Documentation Completion [RC] STAT - Assessment/Plan Last 24 Hours: My Active Orders 05/08/21 07:35 EKG Documentation Completion [RC] STAT
[2021-05-08 08:27] LABS: PTT,PARTIAL THROMBOPLSTIN TIME 39.2 SEC (22.0-34.0)
== END 2021-05-08 09:05 | disposition home or self-care (01) ==
LOC: DL.ED 07:21
DX: R00.0 Tachycardia, unspecified (principal); R60.0 Localized edema; I48.91 Unspecified atrial fibrillation; I10 Essential (primary) hypertension; Z79.82 Long term (current) use of aspirin; Z79.01 Long term (current) use of anticoagulants; Z79.899 Other long term (current) drug therapy
CPT/HCPCS: 36415; 80053; 84484; 85025; 85610; 85730; 93005; 99285; A9270; 99283

== ENCOUNTER 2023-12-07 21:18 | Emergency (ER) | payer MEDICARE, OTHER ==
[2023-12-07] MEDS: hydrALAZINE 20 MG/ML SDV IVPUSH ONE (23:41)
[2023-12-08 00:03] LABS: BASOPHILS PERCENT AUTO 0.3 % (0.0-1.0); HEMATOCRIT 46.5 % (37.0-47.0); HEMOGLOBIN 15.1 g/dL (12.0-16.0); MEAN CORPUSCULAR HEMOGLOBIN 31.1 pg (27.0-34.0); MEAN CORPUSCULAR HGB CONC 32.5 g/dL (33.0-35.0); MEAN CORPUSCULAR VOLUME 95.7 fL (80-100); MONOCYTES PERCENT AUTO 10.4 % (2-8); NEUTROPHILS PERCENT AUTO 58.3 % (42.2-75.2); PLATELET COUNT,PLT 252 10^3/uL (150-450); RED BLOOD CELL COUNT 4.86 10^6/uL (4.2-5.4)
[2023-12-08 00:25] LABS: A/G RATIO 0.9; ALANINE AMINOTRANSFERASE,ALT 41 U/L (14-59); ALBUMIN 3.4 g/dL (3.4-5.0); ALKALINE PHOSPHATASE 154 U/L (46-116); ANION GAP 12.2 mEq/L (7-13); ASPARTATE AMNIOTRANSFERASE,AST 31 U/L (15-37); BILIRUBIN TOTAL 0.5 mg/dL (0.2-1.0); BLOOD UREA NITROGEN,BUN 12 mg/dL (7-18); BUN/CREATININE RATIO 17.6 (No establ ref range); CARBON DIOXIDE,CO2 27 mmol/L (21-32); CHLORIDE,CL 104 mmol/L (98-107); CREATININE 0.68 mg/dL (0.55-1.02); EST CRCL DRUG DOSING (CG) 49.79 mL/min; GLUCOSE RANDOM 108 mg/dL (70-99); POTASSIUM,K 4.2 mmol/L (3.5-5.1); SODIUM,NA 139 mmol/L (136-145)
[2023-12-08 00:27] VITALS: BP 130/61; PULSE 74
[2023-12-08 00:35] LABS: C-REACTIVE PROTEIN < 0.50 ng/dL (<=0.50); ESTIMATED GFR 88 mL/min (>=60); PROTHROMBIN TIME 10.4 SEC (9.0-12.0); PTT,PARTIAL THROMBOPLSTIN TIME 25.9 SEC (22.0-34.0)
== END 2023-12-08 01:33 | disposition home or self-care (01) ==
LOC: DL.ED 21:18
DX: H35.30 Unspecified macular degeneration (principal); I16.0 Hypertensive urgency; I10 Essential (primary) hypertension; Z79.82 Long term (current) use of aspirin; Z79.899 Other long term (current) drug therapy; Z86.16 Personal history of COVID-19
CPT/HCPCS: 36415; 70450; 80053; 85025; 85610; 85651; 85730; 86140; 93005; 96374; 99284; J0360; 93010

== ENCOUNTER 2024-11-14 21:20 | Inpatient (IN) | payer MEDICARE, OTHER ==
[2024-11-14] MEDS: Iopamidol 755 Mg/ML 100 ML Bottle IVPUSH ONE (21:41)
[2024-11-14 21:50] LABS: ANION GAP 12.1 mEq/L (7-13); BLOOD UREA NITROGEN,BUN 7 mg/dL (8-26); CARBON DIOXIDE,CO2 30 mmol/L (24-29); CHLORIDE,CL 102 mmol/L (98-109); CREATININE 0.5 mg/dL (0.6-1.3); GLUCOSE RANDOM 116 mg/dL (70-105); POTASSIUM,K 3.1 mmol/L (3.5-4.9); SODIUM,NA 141 mmol/L (138-146)
[2024-11-14 21:51] LABS: ESTIMATED GFR 94 mL/min (>=60)
[2024-11-14 21:55] LABS: BASOPHILS PERCENT AUTO 0.1 % (0.0-1.0); EOSINOPHILS PERCENT AUTO 0.9 % (1.0-3.0); HEMATOCRIT 41.9 % (37.0-47.0); HEMOGLOBIN 13.9 g/dL (12.0-16.0); LYMPHOCYTES PERCENT AUTO 27.8 % (20.5-50.1); MEAN CORPUSCULAR HEMOGLOBIN 31.3 pg (27.0-34.0); MEAN CORPUSCULAR HGB CONC 33.2 g/dL (33.0-35.0); MEAN CORPUSCULAR VOLUME 94.4 fL (80-100); NEUTROPHILS PERCENT AUTO 60.2 % (42.2-75.2); PLATELET COUNT,PLT 243 10^3/uL (150-450); RED BLOOD CELL COUNT 4.44 10^6/uL (4.2-5.4); WHITE BLOOD CELL COUNT,WBC 7.5 10^3/uL (5.0-10.0)
[2024-11-14 22:14] LABS: INR 1.2 (0.9-1.2); PROTHROMBIN TIME 12.5 SEC (9.0-12.0); PTT,PARTIAL THROMBOPLSTIN TIME 28.3 SEC (22.0-34.0)
[2024-11-14 22:19] LABS: ALANINE AMINOTRANSFERASE,ALT 45 U/L (14-59); ALBUMIN 3.1 g/dL (3.4-5.0); ALKALINE PHOSPHATASE 115 U/L (46-116); ANION GAP 12.9 mEq/L (7-13); ASPARTATE AMNIOTRANSFERASE,AST 32 U/L (15-37); BILIRUBIN TOTAL 1.1 mg/dL (0.2-1.0); BLOOD UREA NITROGEN,BUN 8 mg/dL (7-18); BUN/CREATININE RATIO 12.5 (No establ ref range); CALCIUM 8.8 mg/dL (8.5-10.1); CARBON DIOXIDE,CO2 30 mmol/L (21-32); CHLORIDE,CL 104 mmol/L (98-107); CREATININE 0.64 mg/dL (0.55-1.02); GLUCOSE RANDOM 115 mg/dL (70-99); MAGNESIUM 1.8 mg/dL (1.8-2.4); POTASSIUM,K 2.9 mmol/L (3.5-5.1); PROTEIN TOTAL,TP 5.8 g/dL (6.4-8.2); SODIUM,NA 144 mmol/L (136-145)
[2024-11-14 22:21] LABS: A/G RATIO 1.15; ESTIMATED GFR 89 mL/min (>=60)
[2024-11-14 22:25] LABS: BILIRUBIN,URINE NEGATIVE (NEGATIVE); COLOR,URINE YELLOW (YELLOW); GLUCOSE,URINE NEGATIVE (NEGATIVE); KETONES,URINE NEGATIVE (NEGATIVE); LEUKOCYTE ESTERASE,URINE SMALL (NEGATIVE); NITRITE,URINE NEGATIVE (NEGATIVE); OCCULT BLOOD,URINE TRACE-LYSED (NEGATIVE); PROTEIN,URINE NEGATIVE (NEGATIVE); UROBILINOGEN,URINE 0.2 mg/dL (0.2-1.0)
[2024-11-14 22:26] LABS: APPEARANCE,URINE SLIGHTLY CLOUDY (CLEAR)
[2024-11-14 22:31] LABS: BACTERIA,URINE MODERATE /HPF (0-FEW/HPF); EPITHELIAL CELLS,URINE FEW /HPF (NOT SEEN); MUCUS,URINE FEW /LPF (NOT SEEN); RBC,URINE 0-5 /HPF (0-5)
[2024-11-14] MEDS: Sodium Chloride 0.9% 1,000 ML IV ONE (23:13)
[2024-11-14 23:19] LABS: T4 FREE 1.46 ng/dL (0.76-1.46); TSH ULTRASENSITIVE 1.43 uIU/mL (0.36-3.74)
[2024-11-15] MEDS: cefTRIAXone 1 GM Vial IVPUSH ONE (00:02)
[2024-11-15] MEDS: Azithromycin 500 MG in Sodium Chloride 0.9% 250 ML IV ONE (00:03)
[2024-11-15] MEDS ORDERED: Albuterol/Ipratropium 3.0-0.5 MG/3 ML Neb Soln NEB PRN (02:23)
[2024-11-15] MEDS ORDERED: Docusate Sodium 100 MG Cap PO PRN (02:23)
[2024-11-15] MEDS ORDERED: Bisacodyl 5 MG Tab PO PRN (02:23)
[2024-11-15] MEDS ORDERED: Melatonin 3 MG Tab PO PRN (02:23)
[2024-11-15] MEDS ORDERED: Ondansetron 4 MG/2 ML SDV IVPUSH PRN (02:23)
[2024-11-15] MEDS ORDERED: Acetaminophen/HYDROcodone 325-5 MG Tab PO PRN (02:23)
[2024-11-15 06:13] LABS: BASOPHILS PERCENT AUTO 0.1 % (0.0-1.0); EOSINOPHILS PERCENT AUTO 0.7 % (1.0-3.0); HEMATOCRIT 40.7 % (37.0-47.0); HEMOGLOBIN 13.3 g/dL (12.0-16.0); LYMPHOCYTES PERCENT AUTO 30.9 % (20.5-50.1); MEAN CORPUSCULAR HEMOGLOBIN 31.1 pg (27.0-34.0); MEAN CORPUSCULAR HGB CONC 32.7 g/dL (33.0-35.0); MEAN CORPUSCULAR VOLUME 95.1 fL (80-100); MONOCYTES PERCENT AUTO 11.1 % (2-8); NEUTROPHILS PERCENT AUTO 57.2 % (42.2-75.2); PLATELET COUNT,PLT 242 10^3/uL (150-450); RED BLOOD CELL COUNT 4.28 10^6/uL (4.2-5.4); WHITE BLOOD CELL COUNT,WBC 8.9 10^3/uL (5.0-10.0)
[2024-11-15] MEDS: Potassium Chloride 10 MEQ Tab.ER PO ONE ×2 (06:15→07:56)
[2024-11-15] MEDS: cefTRIAXone 1 GM Vial IVPUSH SCH (08:01)
[2024-11-15] MEDS: Acetaminophen 325 MG Tab PO PRN (09:46)
[2024-11-15] MEDS: Aspirin 81 MG Tab.Chew PO SCH (09:47)
[2024-11-15] MEDS: Metoprolol Succinate 25 MG Tab.ER PO SCH (09:47)
[2024-11-15] MEDS: Apixaban 5 MG Tab PO SCH (09:47)
[2024-11-15] MEDS: Azithromycin 250 MG Tab PO SCH (09:47)
[2024-11-15] MEDS: Lutein/Minerals/Vit A,C & E Tab PO SCH (09:47)
[2024-11-15] MEDS: atorvaSTATin 20 MG Tab PO SCH (20:08)
[2024-11-16 06:25] LABS: BASOPHILS PERCENT AUTO 0.3 % (0.0-1.0); EOSINOPHILS PERCENT AUTO 1.9 % (1.0-3.0); HEMATOCRIT 39.6 % (37.0-47.0); HEMOGLOBIN 12.9 g/dL (12.0-16.0); LYMPHOCYTES PERCENT AUTO 33.7 % (20.5-50.1); MEAN CORPUSCULAR HEMOGLOBIN 31.5 pg (27.0-34.0); MEAN CORPUSCULAR HGB CONC 32.6 g/dL (33.0-35.0); MEAN CORPUSCULAR VOLUME 96.6 fL (80-100); MONOCYTES PERCENT AUTO 13.6 % (2-8); NEUTROPHILS PERCENT AUTO 50.5 % (42.2-75.2); PLATELET COUNT,PLT 242 10^3/uL (150-450); WHITE BLOOD CELL COUNT,WBC 7.3 10^3/uL (5.0-10.0)
[2024-11-16 06:44] LABS: ANION GAP 10.1 mEq/L (7-13); CALCIUM 8.5 mg/dL (8.5-10.1); CREATININE 0.49 mg/dL (0.55-1.02); EST CRCL DRUG DOSING (CG) 74.49 mL/min; POTASSIUM,K 3.1 mmol/L (3.5-5.1)
[2024-11-16] MEDS: Potassium Chloride 10 MEQ Tab.ER PO ONE (07:57)
[2024-11-16 09:19] VITALS: BP 150/60
[2024-11-16 10:46] VITALS: PULSE 53
== END 2024-11-16 10:30 | disposition home or self-care (01) | DRG 194 ==
LOC: DL.ED 21:20 → DL.MS 23:46
PROVIDERS: ADMIT Internal Medicine; ATTEND Internal Medicine
DX: J18.9 Pneumonia, unspecified organism (principal); I48.20 Chronic atrial fibrillation, unspecified; N30.00 Acute cystitis without hematuria; H26.9 Unspecified cataract; H54.7 Unspecified visual loss; H91.90 Unspecified hearing loss, unspecified ear; F15.90 Other stimulant use, unspecified, uncomplicated; R82.71 Bacteriuria; E87.6 Hypokalemia; G47.33 Obstructive sleep apnea (adult) (pediatric); E04.1 Nontoxic single thyroid nodule; I10 Essential (primary) hypertension; E66.9 Obesity, unspecified; Z68.37 Body mass index [BMI] 37.0-37.9, adult; Z98.49 Cataract extraction status, unspecified eye; Z95.0 Presence of cardiac pacemaker; Z98.891 History of uterine scar from previous surgery; Z79.82 Long term (current) use of aspirin; Z79.02 Long term (current) use of antithrombotics/antiplatelets; Z79.899 Other long term (current) drug therapy; Z79.01 Long term (current) use of anticoagulants; Z86.16 Personal history of COVID-19
CPT/HCPCS: 36415; 70450; 70496; 70498; 71260; 74177; 80048; 80053; 81001; 82947; 83605; 83735; 84439; 84443; 84484; 85025; 85610; 85730; 87040 ×2; 87086; 87428; 93005; J7030; Q9967; 99223; 99239; 99285; A9270-GY; J0456; J0696; J7050

== ENCOUNTER 2025-02-23 16:56 | Emergency (ER) | payer MEDICARE, OTHER ==
[2025-02-23] MEDS ORDERED: Sodium Chloride 0.9% 10 ML Syringe FLUSH PRN (17:26)
[2025-02-23 17:36] LABS: BASOPHILS PERCENT AUTO 0.5 % (0.0-1.0); EOSINOPHILS PERCENT AUTO 1.8 % (1.0-3.0); HEMATOCRIT 43.6 % (37.0-47.0); HEMOGLOBIN 14.6 g/dL (12.0-16.0); LYMPHOCYTES PERCENT AUTO 32.2 % (20.5-50.1); MEAN CORPUSCULAR HEMOGLOBIN 32.9 pg (27.0-34.0); MEAN CORPUSCULAR HGB CONC 33.5 g/dL (33.0-35.0); MEAN CORPUSCULAR VOLUME 98.2 fL (80-100); MONOCYTES PERCENT AUTO 11.4 % (2-8); NEUTROPHILS PERCENT AUTO 54.1 % (42.2-75.2); PLATELET COUNT,PLT 224 10^3/uL (150-450); RED BLOOD CELL COUNT 4.44 10^6/uL (4.2-5.4); WHITE BLOOD CELL COUNT,WBC 10.5 10^3/uL (5.0-10.0)
[2025-02-23 17:46] LABS: PROTHROMBIN TIME 10.5 SEC (9.0-12.0); PTT,PARTIAL THROMBOPLSTIN TIME 27.7 SEC (22.0-34.0)
[2025-02-23 17:55] LABS: ALANINE AMINOTRANSFERASE,ALT 86 U/L (14-59); ALBUMIN 3.3 g/dL (3.4-5.0); ALKALINE PHOSPHATASE 152 U/L (46-116); ASPARTATE AMNIOTRANSFERASE,AST 42 U/L (15-37); BILIRUBIN TOTAL 0.5 mg/dL (0.2-1.0); BLOOD UREA NITROGEN,BUN 14 mg/dL (7-18); BUN/CREATININE RATIO 17.7 (No establ ref range); CALCIUM 9.2 mg/dL (8.5-10.1); CARBON DIOXIDE,CO2 27 mmol/L (21-32); CHLORIDE,CL 108 mmol/L (98-107); CREATININE 0.79 mg/dL (0.55-1.02); EST CRCL DRUG DOSING (CG) 48.23 mL/min; GLUCOSE RANDOM 98 mg/dL (70-99); PROTEIN TOTAL,TP 6.7 g/dL (6.4-8.2); SODIUM,NA 142 mmol/L (136-145); TSH ULTRASENSITIVE 0.78 uIU/mL (0.36-3.74)
[2025-02-23 17:58] LABS: A/G RATIO 0.97; B-TYPE NATRIURETIC PEPTIDE,BNP 261 pg/ml (0-100); C-REACTIVE PROTEIN < 0.50 ng/dL (<=0.50); ESTIMATED GFR 75 mL/min (>=60)
[2025-02-23 18:02] LABS: LACTIC ACID 1.1 mmol/L (0.4-2.0)
[2025-02-23] MEDS: Furosemide 20 MG/2 ML VIAL IVPUSH ONE (18:16)
[2025-02-23 19:19] VITALS: BP 152/101; PULSE 97
== END 2025-02-23 21:05 ==
LOC: DL.ED 16:56
DX: I47.19 Other supraventricular tachycardia (principal); R79.89 Other specified abnormal findings of blood chemistry; I10 Essential (primary) hypertension; E66.9 Obesity, unspecified; Z79.82 Long term (current) use of aspirin; Z79.899 Other long term (current) drug therapy; Z86.16 Personal history of COVID-19; Z68.36 Body mass index [BMI] 36.0-36.9, adult
CPT/HCPCS: 36415; 71045; 80053; 83605; 83735; 83880; 84443; 84484; 85025; 85610; 85730; 86140; 93005; 96374; 99285; J1938; 93010

== ENCOUNTER 2025-08-31 13:29 | Emergency (ER) | payer MEDICARE, OTHER ==
[2025-08-31 13:44] VITALS: BP 178/69; PULSE 66
[2025-08-31] MEDS: Silver Nitrate Applicator Each TOP ONE (13:53)
== END 2025-08-31 14:34 | disposition home or self-care (01) ==
LOC: DL.ED 13:29
DX: R04.0 Epistaxis (principal); I10 Essential (primary) hypertension; I48.91 Unspecified atrial fibrillation; Z86.16 Personal history of COVID-19; Z79.82 Long term (current) use of aspirin; Z79.899 Other long term (current) drug therapy; Z79.01 Long term (current) use of anticoagulants
CPT/HCPCS: 30901; 99283; A9270

== ENCOUNTER 2025-09-23 23:49 | Emergency (ER) | payer MEDICARE, OTHER ==
[2025-09-24] MEDS: Lidocaine/EPINEPHrine/Tetracaine Soln 5 ML Each TOP ONE (00:18)
[2025-09-24] MEDS: Silver Nitrate Applicator Each TOP ONE (00:19)
[2025-09-24 01:39] VITALS: BP 141/67; PULSE 67
== END 2025-09-24 01:30 | disposition home or self-care (01) ==
LOC: DL.ED 23:49
DX: R04.0 Epistaxis (principal); I10 Essential (primary) hypertension; I48.91 Unspecified atrial fibrillation; Z79.82 Long term (current) use of aspirin; Z79.01 Long term (current) use of anticoagulants; Z79.899 Other long term (current) drug therapy; Z86.16 Personal history of COVID-19
CPT/HCPCS: 30901; 99283; A9270

== ENCOUNTER 2025-09-25 00:16 | Emergency (ER) | payer MEDICARE, OTHER ==
[2025-09-25] MEDS: Lidocaine/EPINEPHrine/Tetracaine Soln 5 ML Each TOP ONE (00:54)
[2025-09-25] MEDS: Silver Nitrate Applicator Each TOP ONE (01:59)
[2025-09-25 02:15] VITALS: PULSE 60
[2025-09-25 02:22] VITALS: BP 134/55
== END 2025-09-25 02:19 | disposition home or self-care (01) ==
LOC: DL.ED 00:16
DX: R04.0 Epistaxis (principal); I10 Essential (primary) hypertension; I48.91 Unspecified atrial fibrillation; E66.9 Obesity, unspecified; Z86.16 Personal history of COVID-19; Z79.899 Other long term (current) drug therapy; Z79.01 Long term (current) use of anticoagulants; Z68.38 Body mass index [BMI] 38.0-38.9, adult
CPT/HCPCS: 30901; 99283; A9270